=== PATIENT | male | born 1995 | race Hispanic/Latino ===

== ENCOUNTER 2017-09-29 22:55 | Emergency (ER) | payer BC ==
[2017-09-29] MEDS ORDERED: DiphenhydrAMINE HCL 50 MG/ML VIAL ONE (23:59)
== END 2017-09-30 00:19 | disposition home or self-care (01) ==
LOC: EDH 22:55
DX: T78.49XA Other allergy, initial encounter (principal); L50.9 Urticaria, unspecified; X58.XXXA Exposure to other specified factors, initial encounter
CPT/HCPCS: 96372; 99283; J1200

== ENCOUNTER 2020-12-12 12:22 | Emergency (ER) | payer BC, OTHER ==
[~2020-12-12] VITALS: Ht 182.9 cm; Wt 67.6 kg
[2020-12-12 12:23] VITALS: BP 129/72
[2020-12-12 13:37] LABS: BASOPHILS % (AUTO) 0.5 % (0.0-5.0); EOSINOPHILS % (AUTO) 0.5 % (0.0-8.0); HEMATOCRIT 45.6 % (42-54); LYMPHOCYTES % (AUTO) 15.1 % (21.0-51.0); MEAN CORPUSCULAR HEMOGLOBIN 28.1 pg (27.0-33.0); MEAN CORPUSCULAR HGB CONC 33.1 g/dL (32.0-36.0); MEAN CORPUSCULAR VOLUME 84.8 fL (79-99); MONOCYTES % (AUTO) 10.7 % (3.0-13.0); NEUTROPHILS % (AUTO) 72.8 % (40.0-77.0); PLATELET COUNT (AUTO) 207 K/uL (130-400); RED BLOOD CELL COUNT(AUTO) 5.38 MIL/uL (4.50-6.20); WHITE BLOOD COUNT (AUTO) 5.5 K/uL (4.8-10.8)
[2020-12-12 13:51] LABS: CREATININE 0.9 mg/dL (0.5-1.5)
[2020-12-12 13:55] LABS: BILIRUBIN,TOTAL 0.6 mg/dL (0.2-1.0)
[2020-12-12] MEDS ORDERED: ACETAMINOPHEN 500 MG TABLET PO ONE (15:00)
[2020-12-12] MEDS ORDERED: ACETAMINOPHEN 500 MG TABLET ONE (16:08)
[2020-12-12] MEDS ORDERED: DIPH1POW20 PO (16:46)
== END 2020-12-12 17:14 | disposition home or self-care (01) ==
LOC: EDH 12:47
DX: N28.1 Cyst of kidney, acquired (principal); K57.90 Diverticulosis of intestine, part unspecified, without perforation or abscess without bleeding; Z20.822 Contact with and (suspected) exposure to COVID-19; Z90.49 Acquired absence of other specified parts of digestive tract
CPT/HCPCS: 36415; 71045; 80053; 85025; 87635; 87804 ×2; 87880; 99284; C9803

== ENCOUNTER 2025-03-03 09:11 | Emergency (ER) | payer SELFPAY ==
[~2025-03-03] VITALS: Ht 180.3 cm; Wt 70.3 kg
[~2025-03-03 09:11] MED LIST: DIPH1POW20 PO
--- NOTE | 2025-03-03 09:45 | ERN ---
General Chief Complaint: Back Pain-No Injury Stated Complaint: BACK PAIN Time Seen by MD: 09:12 Source: patient History of Present Illness Initial Comments This patient is a 29-year-old male who presented with complain of lower back pain. Patient stated that pain began 2 days ago after lifting his child. Pain is localized in the lower back region and radiates down the left thigh. It is aggravated by walking and with hip flexion and knee extension. He denies urinary incontinence, fecal incontinence, sensory loss or weakness. Timing/Duration: 24 hours Allergies: Coded Allergies: No Allergy Information Available (Verified Allergy, Unknown, 12/12/20) Home Meds Active Scripts Methocarbamol (Robaxin) 750 Mg Tab, 750 MG PO BID for 5 Days, #10 TAB Prov:ANJELICA OLIVO MD 03/03/25 Naproxen (Naproxen) 250 Mg Tablet, 1 TAB PO BID for pain for 10 Days, #20 TAB 0 Refills Prov:ANJELICA OLIVO MD 03/03/25 Diphenhydra/Phenyleph/Acetamin (Theraflu Severe Cold & Cough) 1 Each Powd.pack, 1 EACH PO QID, #20 EA Prov:CHRISTOPHER HERNÁNDEZ 12/12/20 Past Medical History Past Medical History: No Pertinent History Past Surgical History: Other Surgical History Other: RIGHT HAND Family History Family History: Negative Social History Social History: Negative Constitutional: (-) chills, (-) diaphoresis, (-) fever, (-) malaise, (-) weakness, (-) other documentation EENTM: (-) eye pain, (-) blurred vision, (-) tearing, (-) double vision, (-) ear pain, (-) ear discharge, (-) nose pain, (-) nose congestion, (-) throat pain, (-) Throat swelling, (-) mouth pain, (-) tooth pain, (-) mouth swelling, (-) other documentation Respiratory: (-) cough, (-) orthopnea, (-) short of breath, (-) stridor, (-) wheezing, (-) other documentation Cardiovascular: (-) chest pain, (-) edema, (-) palpitations, (-) syncope, (-) dyspnea on exertion, (-) other documentation Gastrointestinal/Abdominal: (-) nausea, (-) vomiting, (-) diarrhea, (-) abdominal pain, (-) abdominal distention, (-) constipation, (-) rectal bleeding, (-) dark stool/melena, (-) other documentation Genitourinary: (-) penile discharge, (-) dysuria, (-) frequency, (-) hematuria, (-) pain, (-) other documentation Musculoskeletal: (+) back pain Review of Systems: was completed, & the rest were negative. Nurses Notes Reviewed: Yes Physical Exam General Appearance: (+) no apparent distress Orientation: (+) alert, (+) oriented x 3 Head/Face Trauma: No Ear, Nose, Throat: (-) hearing grossly normal, (-) normal ENT inspection, (-) moist mucous membraine, (-) normal pharynx, (-) normal TM, (-) abnormal TM, (-) pharyngeal erythema, (-) sinus drainange, (-) sinus pain, (-) tonsillar exudate, (-) tonsillar swelling, (-) nasal drip, (-) nasal congestion, (-) hearing decreased, (-) dry mucous membraine, (-) other documentation Neck: (+) normal inspection, (+) supple, (+) full range of motion; (-) no JVD, (-) non-tender, (-) no bruit, (-) tender, (-) limited range of motion, (-) tender lateral, (-) tender midline, (-) thyromegaly, (-) lymphadenopathy, (-) masses, (-) carotid bruit, (-) other documentaion Respiratory: (+) chest non-tender, (+) lungs clear, (+) well ventilated; (-) decreased breath sounds, (-) retractions, (-) abnormal breath sound, (-) crackles, (-) plerual rub, (-) rales, (-) rhonchi, (-) stridor, (-) wheezing, (- ) other documentation Heart: (+) regular, (+) no gallop; (-) murmur, (-) irregular, (-) bradycardia, (-) tachycardia, (-) systolic murmur, (-) diastolic murmur, (-) extra beats, (-) friction rub, (-) gallop/S3, (-) gallop/S4, (-) other documentation Gastrointestinal: (+) soft, (+) non-tender MDM Differential diagnosis: Paraspinal muscle strain, acute lumbosacral radiculopathy, disc herniation. This patient, 29-year-old male, presented with complain of low back pain which radiates down the left thigh. Lumbar spine x-ray was done to evaluate any acute process but it was unremarkable. On examination, there was no spinal tenderness but paraspinal tenderness was positive. Patient was given IM Norflex 60 mg and IM Toradol 30 mg. He has been instructed regarding activity modification. ED Course Orders Procedure Category Date Status Time Lumbar Spine 2-3vws RAD 03/03/25 Resulted 09:17 Ketorolac PHA 03/03/25 Complete Tromethamine 30mg/Ml 09:30 Orphenadrine Citrate PHA 03/03/25 Complete (Norflex) 09:30 Current Medications Medications (Trade) Dose Ordered Sig/Alex Route PRN Reason Start Time Stop Time Status Last Admin Dose Admin Ketorolac Tromethamine (toRADol) 30 mg ONCE ONCE IM 03/03/25 09:30 03/03/25 09:31 DC 03/03/25 10:38 Orphenadrine Citrate (Norflex) 60 mg ONCE ONCE IM 03/03/25 09:30 03/03/25 09:31 DC 03/03/25 10:37 Vital Signs Date Time Temp Pulse Resp B/P (MAP) Pulse Ox O2 Delivery O2 Flow Rate FiO2 03/03/25 09:14 98.4 85 18 126/86 98 Room Air 0 DX & DISP Disposition: Discharge Departure Impression: Primary Impression: Strain of lumbar paraspinous muscle Condition: Stable Scripts Methocarbamol (Robaxin) 750 Mg Tab 750 MG PO BID for 5 Days, #10 TAB Prov: ANJELICA OLIVO MD 03/03/25 Naproxen (Naproxen) 250 Mg Tablet 1 TAB PO BID for pain for 10 Days, #20 TAB 0 Refills Prov: ANJELICA OLIVO MD 03/03/25 Additional Instructions: FOLLOW-UP WITH PRIMARY CARE PROVIDER IN 1 TO 2 DAYS. TAKE MEDICATIONS DIRECTED HERE IN THE EMERGENCY ROOM. OKAY TO CONTINUE HOME MEDICATIONS UNLESS OTHERWISE DISCUSSED DURING YOUR VISIT IN THE EMERGENCY ROOM TODAY. RETURN TO YOUR NEAREST EMERGENCY ROOM IF SYMPTOMS WORSEN OR IF THERE IS NO IMPROVEMENT. CALL 911 IF YOU NEED IMMEDIATE ASSISTANCE. TAKE TYLENOL [id number] NEEDED AND IF NO CONTRAINDICATIONS ARE PRESENT. INCREASE ORAL HYDRATION. A WOUND CULTURE OR URINE CULTURE WAS ORDERED HERE IN THE EMERGENCY ROOM DEPARTMENT PLEASE FOLLOW-UP WITH PRIMARY CARE PROVIDER AND ADVISE THEM TO GET REPORTS FROM OUR FACILITY. IF YOU HAD ANY WAI WRAP/SPLINTS THAT WERE APPLIED HERE, PLEASE DO NOT REMOVE THEM UNTIL YOU SEE YOUR PRIMARY CARE OR SPECIALTY. REFERRALS: Referrals: TOI JUNE MD (PCP) Time of Disposition: 10:51 ANJELICA OLIVO MD Mar 03, 2025 09:45 SALO VARMA MD Mar 03, 2025 10:51
--- NOTE | 2025-03-03 10:21 | NUR ---
assumed care at this time
--- NOTE | 2025-03-03 10:22 | HMCIMG ---
EXAM: CR Lumbar Spine, 3 View. CLINICAL HISTORY: Lower back pain radiating down left thigh COMPARISON: None provided. FINDINGS: BONES: No acute fracture or aggressive appearing osseous lesion. ALIGNMENT: Alignment is within normal limits. No significant scoliosis. DISCS / DEGENERATIVE CHANGES: The disc spaces are preserved. SOFT TISSUES: The soft tissues are unremarkable. IMPRESSION: No acute lumbar spine abnormality evident. /[place]
[2025-03-03] MEDS ORDERED: KETO10 PO (10:37)
[2025-03-03] MEDS ORDERED: ORPH100 PO (10:37)
[2025-03-03] MEDS: ORPHENADRINE 60MG/2ML IM ONE (10:37)
[2025-03-03] MEDS ORDERED: METH-662 PO (10:48)
[2025-03-03] MEDS ORDERED: NAPR-1196 PO (10:48)
[2025-03-03 10:56] VITALS: BP 121/79; PULSE 80; RESP 18; TEMP 98.4; O2SAT 98
== END 2025-03-03 11:01 | disposition home or self-care (01) ==
LOC: EDH 09:11
DX: S39.012A Strain of muscle, fascia and tendon of lower back, initial encounter (principal); X58.XXXA Exposure to other specified factors, initial encounter; Y93.01 Activity, walking, marching and hiking; Y92.89 Other specified places as the place of occurrence of the external cause; Y99.8 Other external cause status
CPT/HCPCS: 99284; 72100; 96372 ×2; J1885; J2360